=== PATIENT | female | born 1955 | race Caucasian/White ===

== ENCOUNTER 2017-01-09 13:35 | Emergency (ER) | payer SELFPAY ==
[2017-01-09 13:45] VITALS: BP 154/90
[2017-01-09] MEDS ORDERED: Sodium Chloride 0.9% 10 ML Syringe FLUSH PRN (13:54)
--- NOTE | 2017-01-09 14:12 | EDM.PDOC ---
ED HPI NEURO - General Chief Complaint: Neuro Symptoms/Deficits Stated Complaint: STROKE SYMPTOMS Time Seen by Provider: 01/09/17 13:48 Source of Information: Reports: Patient History Limitations: Reports: No limitations - History of Present Illness INITIAL COMMENTS - FREE TEXT/NARRATIVE: Patient presents for evaluation and treatment of several different complaints. stroke alert was called due to the nature of her symptoms. Patient reports symptoms of dizziness, blurry vision, left leg pain, low back pain, shortness of breath and nausea. Patient reports that her symptoms began about 2 or 3 days ago but they have steadily worsened. She reports that the left leg pain is severe. It starts in her left groin and radiates down her medial left leg. Patient reports that she went to work today. She states that her boss noticed that she did not look well and instructed her to go to the ER. Current symptoms include shortness of breath, nausea, left leg pain, low back pain, blurry vision and dizziness. Patient reports the dizziness improves while lying still but worsens with movement. She had some dizziness last summer that was similar. It resolved on its own. Patient denies any chest pain, abdominal pain, headaches , numbness, tingling, seizures, change in speech or any vomiting. No treatments prior to arrival in the ER. 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, other - Past Surgical History HEENT Surgical History: Reports: None Female Surgical History: Reports: Hysterectomy, Salpingo-oophorectomy Musculoskeletal Surgical History: Reports: ORIF, Other (see below) Other Musculoskeletal Surgeries/Procedures:: right leg fracture Social & Family History - Family History Family Medical History: Noncontributory - Tobacco Use Smoking Status *Q: Never Smoker Second Hand Smoke Exposure: No - Caffeine Use Caffeine Use: Reports: None - Alcohol Use Days Per Week of Alcohol Use: 0 - Recreational Drug Use Recreational Drug Use: No - Living Situation & Occupation Living situation: Reports: Occupation: employed ED ROS GENERAL - Review of Systems Review Of Systems: See Below HEENT: Reports: Vision change (blurry vision) Respiratory: Reports: Shortness of Breath Cardiovascular: Denies: Chest pain GI/Abdominal: Reports: Nausea. Denies: Abdominal pain, Vomiting Musculoskeletal: Reports: back pain, leg pain (left) Neurological: Reports: Dizziness. Denies: Headache, Numbness, Seizure, Tingling , Change in Speech ED EXAM, NEURO - Physical Exam Exam: See Below Exam Limited By: No limitations General Appearance: alert, WD/WN, mild distress, thin Eye Exam: bilateral eye: EOMI, nystagmus (with lateral gaze), PERRL Ears: normal external exam, normal canal, hearing grossly normal, normal TMs Nose: normal inspection Throat/Mouth: Normal inspection, Normal lips, Normal voice, No airway compromise Respiratory/Chest: no respiratory distress, lungs clear, normal breath sounds Cardiovascular: normal peripheral pulses (2+ dorsalis pedis and posterior tibialis pulses bilaterally), regular rate, rhythm, no murmur GI/Abdominal: normal bowel sounds, soft, non tender Neurological: alert, normal mood/affect, normal dorsiflexion, CN II-XII intact, normal plantar flexion, other (hospice volunteer equal 5/5 bilaterally; dorsiflexion 5/5 bilaterally, plantar flexion 5/5 bilaterally; smile is symmetric, able to wrinkle forehead) Extremities: normal inspection. No: Priyanka's Sign Psychiatric: normal affect, normal mood Skin Exam: Warm, Dry, Normal color EKG INTERPRETATION EKG Date: 01/09/17 Time: 14:15 Rhythm: NSR Rate (beats/min): 84 [place]: normal P-wave: present QRS: normal ST-T: normal QT: normal EKG Interpretation Comments: 1st EKG at 14:14 shows a NSR at 84 bpm. 1st degree AV block. Reviewed by myself and Dr. Jaffe 2nd ekg at 15:40 shows a NSR at 60 bpm. No change from prior EKG. Reviewed myself and Dr. Jaffe. Course - Vital Signs Last Recorded V/S: Last Vital Signs Temp 36.4 C 01/09/17 13:38 Pulse 73 01/09/17 13:38 Resp 23 H 01/09/17 13:38 BP 154/90 H 01/09/17 13:38 Pulse Ox 92 L 01/09/17 13:38 - Orders/Labs/Meds Orders: Active Orders 24 hr Category Date Time Status EKG 12 Lead [EKG Documentation Completion] [RC] STAT Care 01/09/17 15:39 Active Labs: Laboratory Tests 01/09/17 01/09/17 01/09/17 Range/Units 13:45 13:45 13:45 WBC 6.69 (3.98-10.04) K/mm3 RBC 4.61 (3.98-5.22) M/mm3 Hgb 13.9 (11.2-15.7) gm/L Hct 42.4 (34.1-44.9) % MCV 92.0 (79.4-94.8) fl MCH 30.2 (25.6-32.2) pg MCHC 32.8 (32.2-35.5) g/dl RDW Std Deviation 48.5 H (36.4-46.3) fL Plt Count 301 (182-369) K/mm3 MPV 10.2 (9.4-12.3) fl Neut % (Auto) 66.3 (34.0-71.1) % Lymph % (Auto) 25.6 (19.3-51.7) % Harper % (Auto) 7.3 (4.7-12.5) % Eos % (Auto) 0.4 L (0.7-5.8) Baso % (Auto) 0.3 (0.1-1.2) % Neut # (Auto) 4.43 (1.56-6.13) K/mm3 Lymph # (Auto) 1.71 (1.18-3.74) K/mm3 Harper # (Auto) 0.49 H (0.24-0.36) K/mm3 Eos # (Auto) 0.03 L (0.04-0.36) K/mm3 Baso # (Auto) 0.02 (0.01-0.08) K/mm3 PT 9.9 (8.0-13.0) SECONDS INR 0.91 D-Dimer, Quantitative (0.19-0.59) mg/L Sodium 143 (136-145) mEq/L Potassium 3.7 (3.5-5.1) mEq/L Chloride 107 (98-107) mEq/L Carbon Dioxide 28 (21-32) mEq/L Anion Gap 11.7 (5-15) BUN 10 (7-18) mg/dL Creatinine 0.8 (0.55-1.02) mg/dL Est Cr Clr Drug Dosing 54.31 mL/min Estimated GFR (MDRD) > 60 (>60) mL/min BUN/Creatinine Ratio 12.5 L (14-18) Glucose 83 (80-115) mg/dL Calcium 9.4 (8.5-10.1) mg/dL Magnesium 2.2 (1.8-2.4) mg/dl Total Bilirubin 0.5 (0.2-1.0) mg/dL AST 27 (15-37) U/L ALT 26 (14-59) U/L Alkaline Phosphatase 100 (46-116) U/L CK-MB (CK-2) 1.7 (0-3.6) ng/ml Troponin I < 0.017 (0.00-0.056) ng/mL Total Protein 8.1 (6.4-8.2) g/dl Albumin 4.3 (3.4-5.0) g/dl Globulin 3.8 gm/dL Albumin/Globulin Ratio 1.1 (1-2) Urine Color (Yellow) Urine Appearance (Clear) Urine pH (5.0-8.0) Ur Specific [place] (1.005-1.030) Urine Protein (Negative) Urine Glucose (UA) (Negative) Urine Ketones (Negative) Urine Occult Blood (Negative) Urine Nitrite (Negative) Urine Bilirubin (Negative) Urine Urobilinogen (0.2-1.0) Ur Leukocyte Esterase (Negative) Urine RBC (0-5) /hpf Urine WBC (0-5) /hpf Ur Epithelial Cells Ur Squamous Epith Cells (0-5) /hpf Urine Bacteria (FEW) /hpf Urine Mucus (FEW) /hpf 01/09/17 01/09/17 01/09/17 Range/Units 13:45 15:48 18:00 WBC (3.98-10.04) K/mm3 RBC (3.98-5.22) M/mm3 Hgb (11.2-15.7) gm/L Hct (34.1-44.9) % MCV (79.4-94.8) fl MCH (25.6-32.2) pg MCHC (32.2-35.5) g/dl RDW Std Deviation (36.4-46.3) fL Plt Count (182-369) K/mm3 MPV (9.4-12.3) fl Neut % (Auto) (34.0-71.1) % Lymph % (Auto) (19.3-51.7) % Harper % (Auto) (4.7-12.5) % Eos % (Auto) (0.7-5.8) Baso % (Auto) (0.1-1.2) % Neut # (Auto) (1.56-6.13) K/mm3 Lymph # (Auto) (1.18-3.74) K/mm3 Harper # (Auto) (0.24-0.36) K/mm3 Eos # (Auto) (0.04-0.36) K/mm3 Baso # (Auto) (0.01-0.08) K/mm3 PT (8.0-13.0) SECONDS INR D-Dimer, Quantitative 0.25 (0.19-0.59) mg/L Sodium (136-145) mEq/L Potassium (3.5-5.1) mEq/L Chloride (98-107) mEq/L Carbon Dioxide (21-32) mEq/L Anion Gap (5-15) BUN (7-18) mg/dL Creatinine (0.55-1.02) mg/dL Est Cr Clr Drug Dosing mL/min Estimated GFR (MDRD) (>60) mL/min BUN/Creatinine Ratio (14-18) Glucose (80-115) mg/dL Calcium (8.5-10.1) mg/dL Magnesium (1.8-2.4) mg/dl Total Bilirubin (0.2-1.0) mg/dL AST (15-37) U/L ALT (14-59) U/L Alkaline Phosphatase (46-116) U/L CK-MB (CK-2) (0-3.6) ng/ml Troponin I < 0.017 (0.00-0.056) ng/mL Total Protein (6.4-8.2) g/dl Albumin (3.4-5.0) g/dl Globulin gm/dL Albumin/Globulin Ratio (1-2) Urine Color Light yellow (Yellow) Urine Appearance Slt cloudy H (Clear) Urine pH 7.0 (5.0-8.0) Ur Specific [place] 1.015 (1.005-1.030) Urine Protein Negative (Negative) Urine Glucose (UA) Negative (Negative) Urine Ketones Negative (Negative) Urine Occult Blood Negative (Negative) Urine Nitrite Negative (Negative) Urine Bilirubin Negative (Negative) Urine Urobilinogen 0.2 (0.2-1.0) Ur Leukocyte Esterase Negative (Negative) Urine RBC Not seen (0-5) /hpf Urine WBC 0-5 (0-5) /hpf Ur Epithelial Cells Not Reportable Ur Squamous Epith Cells 0-5 (0-5) /hpf Urine Bacteria Not seen (FEW) /hpf Urine Mucus Not seen (FEW) /hpf Meds: Medications Discontinued Medications Generic Name Dose Route Start Last Admin Trade Name Freq PRN Reason Stop Dose Admin Sodium Chloride 100 mls @ 60 mls/hr 01/09/17 14:15 01/09/17 14:14 Normal Saline IV 60 mls/hr ASDIRECTED WANG Administration Iopamidol 100 ml 01/09/17 14:14 01/09/17 14:14 Isovue-370 (76%) IVPUSH 01/09/17 14:15 100 ml ONETIME ONE Administration Sodium Chloride 10 ml 01/09/17 13:54 Saline Flush FLUSH ASDIRECTED PRN Keep Vein Open Sodium Chloride 10 ml 01/09/17 14:14 01/09/17 17:08 Saline Flush FLUSH 01/09/17 14:15 10 ml ONETIME ONE Administration - Radiology Interpretation Free Text/Narrative:: CT of the head without contrast impression per Dr. Moreno 1. No abnormality identified on noncontrast head CT. No significant changes seen from prior head CT exam. CT of the chest with contrast impression per Dr. Mcconnell 1. Mildely ectatic descending aorta. No focal aneurysm or dissection is seen. 2. 1 cm nodule within the right lower lung. Followup noncontrast chest CT recommended 6 months which would occur in July 2017. 3. Other incidental findings. CT of the abdomen and pelvis with contrast impression per Dr. Mcconnell 1. Aorta shows no aneurysmal dilation or dissection. 2. Other incidental findings. CT of the lumbar spine impression per Dr. Mcconnell 1. Degenerative change is noted most severe at L4-L5. No acute fracture is seen. L4-L5 disc shows circumferential bulging. Mild spondylolisthesis due to severe degenerative popliteal changes seen. L4-L5 level shows mild central canal stenosis. Mild left -sided neural foraminal stenosis is also seen at L4-L5. CT Results Date: 01/09/17 - Re-Assessments/Exams Free Text/Narrative Re-Assessment/Exam: 01/09/17 14:[address] jaffe. In addition to head CT, EKG and lab reports recommend getting a CT of the chest abdomen and pelvis to rule out an aortic dissection. I do not feel that the patient is having a stroke. Her speech is clear. Smile is symmetric. Weakness on the left leg is more from pain. Offered the patient medication to help with the dizziness, pain and nausea. She declines any medications. She states that she would like to be aware of her symptoms and not mask. 01/09/17 15:45 Patient is now complaining of sharp, stabbing chest pain. Repeat EKG ordered. No acute St segment changes. NSR at 68 bpm. Declines any medication for pain or dizziness. 01/09/17 16:06 Lab studies have returned. White blood cell count is normal at 6.69, hemoglobin of 13.9 and platelets are 301. PT is 9.9, INR 0.91. Sodium is 143, potassium 3.7 chloride is 107. Creatinine 0.8. Anion gap is 11.9. Calcium is 9.4. Magnesium is 2.2. D-dimer is within normal at 0.25. troponin is within normal at less than 0.017. CK-MB is within normal limits at 1.7. I discussed in the CT, labs and EKG results with the patient. I feel that she likely is experiencing leg pain from her low back as she has degenerative change at L4-L5 with a circumferential bulging and sent mild central canal stenosis. I offered her medication again for the pain and she again declines. Patient reports that she continues to have dizziness. This is worse with movement. I feel that she likely has something like BPPV. She is adamant that this is not what she has. She states she's had this before and this does not feel similar. However, feel that her symptoms are consistent with BPPV. I offered her some meclizine for the dizziness. She declined. The plan will be to hold her in the ER for a short time to see her she does. I am still awaiting her UA. will repeat her troponin. she reported to nursing staff that she is having sharp having chest pain. Her repeat EKG did not show any thing concerning. She again declines any medication help with pain. 01/09/17 19:23 Repeat trop is again normal at <0.017 UA shows no leukocytes, nitrates, blood, glucose or ketones. I believe that the patient is having left leg pain from her back problems and BPPV. She is adamant that this is not what is causing her problems. I discussed with her several different treatment options including medications which is not fond of. I also offered her PT to help with the back pain and to help with maneuvers for the BPPV. I did write her a referral. I am unsure if she will go to physical therapy. I will have her follow up this week with family practice provider. I have referred her to one as she does not have one. She is to return to the ER should her symptoms change or worsen. The patient would like to be admitted to the hospital. At this point I do not any reason for admission and I do not feel that she requires admission. I feel that we should monitor her closely at home. Discharge instructions as documented. Departure - Departure Time of Disposition: 19:24 Disposition: Home, Self-Care 01 Condition: fair Clinical Impression: Arthritis, lumbar spine, Central stenosis of spinal canal, BPPV (benign paroxysmal positional vertigo) Prescriptions: Meclizine [Antivert] 12.5 mg PO TID PRN #12 tablet PRN Reason: Dizziness Instructions: Arthritis, Benign Positional Vertigo, Spinal Stenosis, Easy-to- Read Referrals: PCP,None [Primary Care Provider] - Amando Torres [Physician] - Forms: ED Department Discharge Additional Instructions: OTC aleve or Tylenol as needed for pain and symptom relief. Recommend ice or heat to the low back help with additional symptom relief. Recommend physical therapy. A referral has been filled out for you for evaluation treatment of low back pain and vertigo. Please contact them and [phone] to schedule with the physical therapist. Meclizine 1 tab PO every 8 hours prn dizziness. Recommend followup with Dr. Link. Followup with him the end of this week. Please call [phone] schedule with him. Please return to the ER should your symptoms change or worsen. - My Orders Last 24 Hours: My Active Orders 01/09/17 15:39 EKG 12 Lead [EKG Documentation Completion] [RC] STAT - Assessment/Plan Last 24 Hours: My Active Orders 01/09/17 15:39 EKG 12 Lead [EKG Documentation Completion] [RC] STAT
[2017-01-09] MEDS: Sodium Chloride 0.9% 10 ML Syringe FLUSH ONE ×3 (14:14→17:08)
[2017-01-09] MEDS ORDERED: Iopamidol 755 Mg/ML 100 ML Bottle IVPUSH ONE (14:14)
[2017-01-09] MEDS ORDERED: Sodium Chloride 0.9% 100 ML IV SCH (14:15)
--- NOTE | 2017-01-09 14:16 | CT ---
Head CT Technique: Multiple axial sections through the brain were obtained. Intravenous contrast was not utilized. Comparison: Previous head CT study of 11/21/14. Findings: Ventricles along with basal cisterns and sulci over the convexities appear within normal limits for the patient's age. No abnormal parenchymal densities are seen. No evidence of intracranial hemorrhage. No midline shift or mass effect is seen. Bone window settings were reviewed which shows no discrete calvarial abnormality. Visualized sinuses are clear. Impression: 1. No abnormality identified on noncontrast head CT study. No significant change is seen from prior head CT exam. Diagnostic code #1
--- NOTE | 2017-01-09 14:43 | CT ---
CT lumbar spine Technique: Multiple axial sections were obtained from the top of T11 inferiorly through the L5-S1 disc. Reconstructed sagittal and coronal images were obtained. Findings: L2-3 disc show slight circumferential disc bulge with posterior disc maintaining a concave margin. L3-L4 disc shows a slight circumferential disc bulge with posterior disc maintaining a slight concave margin. L4-L5 disc shows circumferential bulging. Mild spondylolisthesis due to severe degenerative apophyseal change is seen. L4-L5 level shows mild central canal stenosis. Mild left-sided neural foraminal stenosis also seen at L4-L5. Severe degenerative apophyseal change is seen on the left side at L5-S1. Posterior disc is maintained. Scattered endplate osteophytes are seen anteriorly. No fracture is seen. Impression: 1. Degenerative change as noted above most severe at L4-L5. No acute fracture is seen. Diagnostic code #2
--- NOTE | 2017-01-09 15:16 | CT ---
CT chest Technique: Multiple axial sections were obtained from above the lung apices inferiorly through the lung bases. Intravenous contrast was utilized. Findings: Nonspecific nodule is noted within the right lobe of the thyroid gland measuring 1.1 cm. Ascending aorta is slightly ectatic at 3.3 cm. No aortic dissection is seen. Mediastinum and hilar regions show no adenopathy or mass. No pulmonary embolism is identified. Nodule is identified within the right lung base measuring 1 cm. Lungs otherwise are clear. Bone window settings were reviewed which shows mild scattered degenerative endplate spurring within the spine. Impression: 1. Mildly ectatic ascending aorta. No focal aneurysm or dissection is seen. 2. 1 cm nodule within the right lower lung. Follow-up noncontrast chest CT recommended in 6 months which would occur in July,. 3. Other incidental findings. Diagnostic code #9 CT abdomen and pelvis Technique: Multiple axial sections were obtained from above the dome of the diaphragm inferiorly through the pubic symphysis. Intravenous contrast was utilized. No oral contrast has been given. Comparison: Previous CT abdomen and pelvis exam of 11/28/14 is available. Findings: Mild artifact is noted from the patient's arms. Liver shows no focal abnormality. Spleen appears within normal limits. Adrenal glands show no nodule. Gallbladder shows no calcified gallstones. Pancreas is within normal limits. Kidneys show symmetric contrast enhancement without hydronephrosis or discrete mass. Aorta shows no aneurysmal dilatation or dissection. No retroperitoneal adenopathy or mesenteric abnormalities are noted. No pelvic mass or adenopathy is seen. Appendix not appreciated with certainty. No bowel dilatation is seen. Celiac axis and superior mesenteric artery shows no focal stenosis. Delayed images shows contrast within the distal ureters and bladder. Bone window settings were reviewed showing mild degenerative change within the lumbar spine. Impression: 1. Aorta shows no aneurysmal dilatation or dissection. 2. Other incidental findings as noted above. Diagnostic code #2
== END 2017-01-09 19:43 | disposition home or self-care (01) ==
LOC: JD.ED 13:35
DX: H81.10 Benign paroxysmal vertigo, unspecified ear (principal); R07.9 Chest pain, unspecified; M48.06 Spinal stenosis, lumbar region; M46.96 Unspecified inflammatory spondylopathy, lumbar region; Z88.0 Allergy status to penicillin
CPT/HCPCS: 36415; 70450; 71260; 72131; 74177; 80053; 81001; 82553; 83735; 84484; 85025; 85379; 85610; 93005; 96360; 96361; 99285; J7030; J7050; Q9967; 99284